=== PATIENT | female | born 1990 | race Caucasian/White ===

== ENCOUNTER 2021-04-27 19:59 | Inpatient (IN) | payer OTHER ==
[2021-04-27 20:38] VITALS: BMI 28.5
[2021-04-27] MEDS ORDERED: ACETAMINOPHEN 1000 MG/100 ML BAG IVPB ONE (21:47)
[2021-04-27] MEDS ORDERED: ACETAMINOPHEN INJECTION 100 ML IVPB ONE (23:19)
[2021-04-27] MEDS ORDERED: SODIUM CHLORIDE 0.9% 500 ML INFUS.BAG IV ONE (23:19)
[2021-04-27] MEDS ORDERED: DOXYCYCLINE INJECTION 100 MG in DEXTROSE 5%-WATER 100 ML IVPB ONE (23:26)
[2021-04-27 23:27] LABS: HEMOGLOBIN 11.4 GM/dL (10.7-15.3); MCH 26.8 pg (25.7-33.7); RDW 17.5 % (11.6-15.6); WHITE BLOOD COUNT 7.5 K/mm3 (4.0-10.0)
[2021-04-27 23:28] LABS: VENOUS PCO2 40.8 mmHg (38-52); VENOUS PH 7.386 (7.310-7.410)
[2021-04-27 23:29] LABS: BASO % 0.3 % (0-2.0); EOS % 1.5 % (0-4.5); HEMATOCRIT 35.4 % (32.4-45.2); LYMPH % 8.1 % (8-40); MCHC 32.2 g/dl (32.0-36.0); MEAN CELL VOLUME 83.5 fl (80-96); MEAN PLT VOLUME 8.7 fl (7.5-11.1); MONO % 5.8 % (3.8-10.2); NEUT % 84.3 % (42.8-82.8); PLATELET COUNT 223 10^3/uL (134-434); RBC 4.25 M/mm3 (3.60-5.2)
[2021-04-27 23:35] LABS: EPI CELLS 22 /uL (0-25.1); HYALINE CASTS 1 /uL (0-3.1); URINE APPEARANCE CLEAR; URINE BACTERIA 92 /uL (0-1359); URINE BILIRUBIN NEGATIVE (NEGATIVE); URINE COLOR YELLOW; URINE GLUCOSE (UA) NEGATIVE (NEGATIVE); URINE KETONE NEGATIVE (NEGATIVE); URINE LEUK ESTERASE 2+ (NEGATIVE); URINE NITRITE NEGATIVE (NEGATIVE); URINE PROTEIN NEGATIVE (NEGATIVE); URINE RBC 351 /uL (0-23.9); URINE UROBILINOGEN 0.2 mg/dL (0.2-1.0); URINE WBC 94 /uL (0-25.8)
[2021-04-27] MEDS ORDERED: DOXYCYCLINE HYCLATE 100 MG VIAL ONE ×2 (23:40→23:48)
[2021-04-27 23:41] LABS: INR 0.92 (0.83-1.09); PROTHROMBIN TIME (PATIENT) 10.8 SEC (9.7-13.0)
[2021-04-27 23:57] LABS: ALBUMIN 2.7 g/dl (3.4-5.0)
[2021-04-28] LABS: CREATININE 0.6 mg/dL (0.55-1.3)
[2021-04-28 00:01] LABS: BILIRUBIN,TOTAL 0.4 mg/dL (0.2-1)
[2021-04-28 00:02] LABS: TOT PROT 6.5 g/dl (6.4-8.2)
[2021-04-28] MEDS ORDERED: ACETAMINOPHEN 325 MG TABLET (FP) PO PRN (00:32)
[2021-04-28] MEDS ORDERED: GENTAMICIN 80 MG PREMIXED IVPB 80 MG/100 ML BAG IVPB ONE ×2 (00:45→01:22)
[2021-04-28] MEDS ORDERED: CLINDAMYCIN 900 MG PREMIX IVPB 900 MG/50 ML BAG IVPB ONE (01:22)
[2021-04-28] MEDS: CLINDAMYCIN 900 MG PREMIX IVPB 900 MG/50 ML BAG IVPB SCH ×3 (02:34→17:04)
[2021-04-28] MEDS: IBUPROFEN 600 MG TABLET (FP) PO PRN ×2 (09:18→14:50)
[2021-04-28 15:39] VITALS: BP 103/65; PULSE 79; TEMP 98.3
== END 2021-04-28 17:40 | disposition home or self-care (01) | DRG 560 ==
LOC: JER 19:59 → JERBED 04-28 00:23 → J3W 04-28 02:54
PROVIDERS: ADMIT Obstetrics & Gynecology; ATTEND Obstetrics & Gynecology
DX: O86.4 Pyrexia of unknown origin following delivery (principal); O86.12 Endometritis following delivery; O73.1 Retained portions of placenta and membranes, without hemorrhage; R30.0 Dysuria; Z3A.00 Weeks of gestation of pregnancy not specified; Z37.0 Single live birth
CPT/HCPCS: 36415; 76830-TC; 80053; 81003; 82803; 83605; 85025; 85610; 86850; 86870; 86900; 86901; 86902; 87040; 87086; 87186; 99285-25; C9803; J0131; U0003; U0005

== ENCOUNTER 2023-09-07 14:20 | Emergency (ER) | payer OTHER ==
[2023-09-07 14:41] VITALS: BP 113/64; PULSE 68; RESP 18; TEMP 98; BMI 24.5
[2023-09-07] MEDS ORDERED: ACETAMINOPHEN 500 MG TABLET (FP) ONE (15:30)
[2023-09-07] MEDS: ACETAMINOPHEN 500 MG TABLET (FP) PO ONE (15:35)
[2023-09-07 15:43] LABS: EPI CELLS >36 /uL (0-25.1); HCG,QUALITATIVE URINE Negative; HYALINE CASTS 1 /uL (0-3.1); URINE APPEARANCE CLOUDY; URINE BACTERIA 1293 /uL (0-1359); URINE BILIRUBIN NEGATIVE (NEGATIVE); URINE COLOR YELLOW; URINE GLUCOSE (UA) NEGATIVE (NEGATIVE); URINE KETONE NEGATIVE (NEGATIVE); URINE LEUK ESTERASE 2+ (NEGATIVE); URINE NITRITE NEGATIVE (NEGATIVE); URINE PROTEIN NEGATIVE (NEGATIVE); URINE UROBILINOGEN 0.2 mg/dL (0.2-1.0); URINE WBC 526 /uL (0-25.8)
[2023-09-07 15:51] LABS: URINE RBC 105.3 /uL (0-23.9)
[2023-09-07] MEDS ORDERED: KETOROLAC TROMETHAMINE 30 MG/1 ML VIAL ONE (15:57)
[2023-09-07] MEDS: KETOROLAC TROMETHAMINE 30 MG/1 ML VIAL IM ONE (16:02)
== END 2023-09-07 18:37 | disposition home or self-care (01) ==
LOC: JER 14:20
PROC: 3E0233Z Introduction of Anti-inflammatory into Muscle, Percutaneous Approach (ICD-10-PCS; principal; 2023-09-07)
DX: S39.92XA Unspecified injury of lower back, initial encounter (principal); W19.XXXA Unspecified fall, initial encounter
CPT/HCPCS: 72131-TC; 81003; 84703; 87086; 99284-25